=== PATIENT | male | born 1975 | race African-American/Black ===

== ENCOUNTER 2022-12-16 06:18 | Inpatient (IN) | payer OTHER ==
[2022-12-16 06:38] LABS: #Basophils 0.1 10x3/uL (0.0-0.2); #Eosinphils 0.2 10x3/uL (0.0-0.5); #Monocytes 0.7 10x3/uL (0.0-1.1); #Neutrophils 6.8 10x3/uL (1.5-8.4); %Basophils 0.6 % (0.0-2.0); %Eosinophils 1.9 % (0.0-6.0); %Monocytes 6.6 % (0.0-10.0); %Neutrophils 67.4 % (40.0-75.0); Hemoglobin 12.1 g/dL (13.5-17.5); Mean Corpuscular HGB CONC 34.7 g/dL (32.0-36.0); Mean Corpuscular Hemoglobin 27.8 pg (27.0-33.0); Mean Platelet Volume 11.4 fl (7.4-10.4); Platelet Count 261 10x3/uL (150-450); RBC Distribution Width 13.8 % (11.5-14.5); Red Blood Cell (RBC) Count 4.36 10x6/uL (4.32-5.72); White Blood Cell (WBC) Count 10.1 10x3/uL (3.5-10.5)
[2022-12-16] MEDS ORDERED: hydrALAZINE 20 MG/ML VIAL ONE (06:43)
[2022-12-16] MEDS ORDERED: Ondansetron PF 4 MG/2 ML Vial ONE ×2 (06:57→06:58)
[2022-12-16 07:04] LABS: ALT (SGPT) 20 U/L (8-55); AST (SGOT) 26 U/L (5-34); Albumin 3.2 g/dL (3.5-5.0); Alkaline Phosphatase 70 U/L (40-110); Anion Gap 17 mmol/L (10-20); BUN (Urea Nitrogen) 22 mg/dL (8.9-20.6); Bilirubin, Total 0.4 mg/dL (0.2-1.2); Calc. Creatinine Clearance 0 mL/min (70-130); Calcium 8.1 mg/dL (7.8-10.44); Carbon Dioxide 23 mmol/L (22-29); Chloride 104 mmol/L (98-107); Estimated GFR 37; Glucose 203 mg/dL (70-105); Potassium 3.5 mmol/L (3.5-5.1); Protein, Total 6.2 g/dL (6.0-8.3); Sodium 140 mmol/L (136-145)
[2022-12-16] MEDS ORDERED: Morphine 4 MG/ML VIAL ONE (07:51)
[2022-12-16] MEDS ORDERED: Aspirin 325 MG TAB ONE (07:52)
[2022-12-16] MEDS ORDERED: Ondansetron PF 4 MG/2 ML Vial IVP PRN (08:07)
[2022-12-16] MEDS ORDERED: Ondansetron ODT 4 MG TAB PO PRN (08:07)
[2022-12-16] MEDS ORDERED: Amlodipine 5 MG TAB ONE (09:14)
[2022-12-16] MEDS ORDERED: Dextrose 5% in Water 1,000 ML IV PRN (09:18)
[2022-12-16] MEDS ORDERED: Glucagon 1 MG/ML KIT IM PRN (09:18)
[2022-12-16] MEDS ORDERED: Dextrose 50% Abboject 50 ML SYRINGE SLOW IVP PRN (09:18)
[2022-12-16 10:26] VITALS: BMI 32.1
[2022-12-16] MEDS ORDERED: Nitroglycerin 0.4 MG TAB (25 Tab Bottle) SL PRN (10:32)
[2022-12-16] MEDS: Morphine 2 MG/ML VIAL SLOW IVP PRN (10:45)
[2022-12-16] MEDS ORDERED: cloNIDine 0.1 MG TAB PO SCH ×2 (10:45→21:00)
[2022-12-16] MEDS ORDERED: Nitroglycerin 50 MG/250 ML BOT 250 ML IVPB SCH (11:00)
[2022-12-16] MEDS: Heparin 5,000 UNITS/ML VIAL SC SCH ×3 (12:11→21:53)
[2022-12-16] MEDS: Aspirin 81 mg Enteric Coated Tablet PO SCH (12:11)
[2022-12-16] MEDS ORDERED: Metoprolol Tartrate 25 MG TAB PO SCH (12:45)
[2022-12-16 12:54] LABS: Troponin I 0.243 ng/mL (< 0.028)
[2022-12-16 14:23] LABS: Hemoglobin A1c 7.5 % (4.0-6.0)
[2022-12-16 14:53] LABS: Amphetamine Not Detected (NotDetected); Barbiturates Screen Not Detected (NotDetected); Benzodiazepine Screen Not Detected (NotDetected); Cocaine Metabolite Screen Not Detected (NotDetected); Methadone Not Detected (NotDetected); Methamphetamine Not Detected (NotDetected); Opiate Screen Detected (NotDetected); Oxycodone Screen Not Detected (NotDetected); Phencyclidine (PCP) Not Detected (NotDetected); THC/Cannabinoid Screen Not Detected (NotDetected); Tricyclic Screen Not Detected (NotDetected)
[2022-12-16] MEDS: Losartan Potassium 50 MG TAB PO SCH (16:29)
[2022-12-16] MEDS ORDERED: Clopidogrel Bisulfate 75 MG TAB PO SCH (17:00)
[2022-12-16] MEDS: Amlodipine 5 MG TAB PO SCH (21:53)
[2022-12-16] MEDS: Metoprolol Tartrate 25 MG TAB PO SCH (21:54)
[2022-12-16] MEDS: Rosuvastatin 20 MG TAB PO SCH (21:54)
[2022-12-17 04:10] LABS: #Basophils 0.1 10x3/uL (0.0-0.2); #Eosinphils 0.1 10x3/uL (0.0-0.5); #Monocytes 0.9 10x3/uL (0.0-1.1); #Neutrophils 10.3 10x3/uL (1.5-8.4); %Basophils 0.4 % (0.0-2.0); %Eosinophils 0.4 % (0.0-6.0); %Lymphocytes 7.4 % (18.0-47.0); %Monocytes 7.5 % (0.0-10.0); Hemoglobin 11.2 g/dL (13.5-17.5); Mean Corpuscular HGB CONC 33.8 g/dL (32.0-36.0); Mean Corpuscular Hemoglobin 27.9 pg (27.0-33.0); Mean Corpuscular Volume 82.3 fl (81.2-95.1); Mean Platelet Volume 11.6 fl (7.4-10.4); Platelet Count 226 10x3/uL (150-450); RBC Distribution Width 14.2 % (11.5-14.5); Red Blood Cell (RBC) Count 4.02 10x6/uL (4.32-5.72); White Blood Cell (WBC) Count 12.3 10x3/uL (3.5-10.5)
[2022-12-17 04:20] LABS: Anion Gap 13 mmol/L (10-20); BUN (Urea Nitrogen) 25 mg/dL (8.9-20.6); Calc. Creatinine Clearance 72 mL/min (70-130); Calcium 8.4 mg/dL (7.8-10.44); Carbon Dioxide 24 mmol/L (22-29); Chloride 104 mmol/L (98-107); Estimated GFR 40; Glucose 167 mg/dL (70-105); Potassium 3.3 mmol/L (3.5-5.1); Sodium 138 mmol/L (136-145)
[2022-12-17] MEDS: Clopidogrel Bisulfate 75 MG TAB PO SCH (08:28)
[2022-12-17] MEDS: Amlodipine 5 MG TAB PO SCH ×2 (08:28→20:17)
[2022-12-17] MEDS: Heparin 5,000 UNITS/ML VIAL SC SCH ×3 (08:28→20:19)
[2022-12-17] MEDS: Aspirin 81 mg Enteric Coated Tablet PO SCH (08:28)
[2022-12-17] MEDS: Metoprolol Tartrate 25 MG TAB PO SCH ×2 (09:56→20:19)
[2022-12-17] MEDS: Sodium Chloride 0.9% 1,000 ML IV SCH (11:45)
[2022-12-17] MEDS: HumaLOG 300 UNITS/3 ML VIAL SC PRN (11:46)
[2022-12-17] MEDS: hydrALAZINE 20 MG/ML VIAL SLOW IVP PRN ×2 (12:28→18:36)
[2022-12-17] MEDS: Losartan Potassium 50 MG TAB PO SCH (17:00)
[2022-12-17] MEDS: hydrALAZINE 25 MG TAB PO SCH (20:17)
[2022-12-17] MEDS: Rosuvastatin 20 MG TAB PO SCH (20:19)
[2022-12-18] MEDS: hydrALAZINE 20 MG/ML VIAL SLOW IVP PRN (05:30)
[2022-12-18 06:03] LABS: #Basophils 0.1 10x3/uL (0.0-0.2); #Monocytes 1.1 10x3/uL (0.0-1.1); #Neutrophils 9.4 10x3/uL (1.5-8.4); %Basophils 0.4 % (0.0-2.0); %Eosinophils 0.3 % (0.0-6.0); %Lymphocytes 10.6 % (18.0-47.0); %Monocytes 9.1 % (0.0-10.0); %Neutrophils 79.2 % (40.0-75.0); Hemoglobin 11.7 g/dL (13.5-17.5); Mean Corpuscular HGB CONC 34.1 g/dL (32.0-36.0); Mean Corpuscular Hemoglobin 27.9 pg (27.0-33.0); Mean Corpuscular Volume 81.7 fl (81.2-95.1); Mean Platelet Volume 11.3 fl (7.4-10.4); Platelet Count 219 10x3/uL (150-450); RBC Distribution Width 14.5 % (11.5-14.5); White Blood Cell (WBC) Count 11.9 10x3/uL (3.5-10.5)
[2022-12-18 06:11] LABS: Anion Gap 14 mmol/L (10-20); BUN (Urea Nitrogen) 20 mg/dL (8.9-20.6); Calc. Creatinine Clearance 82 mL/min (70-130); Calcium 8.4 mg/dL (7.8-10.44); Carbon Dioxide 21 mmol/L (22-29); Chloride 106 mmol/L (98-107); Estimated GFR 47; Glucose 151 mg/dL (70-105); Potassium 3.2 mmol/L (3.5-5.1); Sodium 138 mmol/L (136-145)
[2022-12-18] MEDS: Sodium Chloride 0.9% 1,000 ML IV SCH (06:35)
[2022-12-18] MEDS ORDERED: Spironolactone 25 MG TAB PO SCH (08:00)
[2022-12-18] MEDS: Amlodipine 5 MG TAB PO SCH ×2 (09:14→22:54)
[2022-12-18] MEDS: Aspirin 81 mg Enteric Coated Tablet PO SCH (09:14)
[2022-12-18] MEDS: Metoprolol Tartrate 25 MG TAB PO SCH ×3 (09:14→22:54)
[2022-12-18] MEDS: hydrALAZINE 25 MG TAB PO SCH ×4 (09:14→22:54)
[2022-12-18] MEDS: Clopidogrel Bisulfate 75 MG TAB PO SCH (09:15)
[2022-12-18] MEDS: Heparin 5,000 UNITS/ML VIAL SC SCH ×3 (09:15→22:53)
[2022-12-18] MEDS ORDERED: Potassium Bicarbonate/Cit Ac 20 MEQ TAB PO SCH (09:15)
[2022-12-18] MEDS: HumaLOG 300 UNITS/3 ML VIAL SC PRN ×2 (12:18→23:05)
[2022-12-18] MEDS: Losartan Potassium 50 MG TAB PO SCH (17:38)
[2022-12-18] MEDS: Rosuvastatin 20 MG TAB PO SCH (22:53)
[2022-12-18] MEDS: Spironolactone 25 MG TAB PO SCH (22:54)
[2022-12-19 03:41] LABS: Anion Gap 16 mmol/L (10-20); BUN (Urea Nitrogen) 25 mg/dL (8.9-20.6); Calc. Creatinine Clearance 68 mL/min (70-130); Calcium 8.6 mg/dL (7.8-10.44); Carbon Dioxide 22 mmol/L (22-29); Chloride 105 mmol/L (98-107); Estimated GFR 37; Glucose 127 mg/dL (70-105); Potassium 3.1 mmol/L (3.5-5.1); Sodium 140 mmol/L (136-145)
[2022-12-19 04:02] LABS: #Eosinphils 0.1 10x3/uL (0.0-0.5); #Neutrophils 8.2 10x3/uL (1.5-8.4); %Basophils 0.4 % (0.0-2.0); %Eosinophils 0.8 % (0.0-6.0); %Lymphocytes 11.7 % (18.0-47.0); %Monocytes 9.7 % (0.0-10.0); %Neutrophils 76.9 % (40.0-75.0); Hemoglobin 11.8 g/dL (13.5-17.5); Mean Corpuscular HGB CONC 34.6 g/dL (32.0-36.0); Mean Corpuscular Hemoglobin 27.8 pg (27.0-33.0); Mean Corpuscular Volume 80.4 fl (81.2-95.1); Mean Platelet Volume 11.7 fl (7.4-10.4); Platelet Count 231 10x3/uL (150-450); RBC Distribution Width 14.2 % (11.5-14.5); Red Blood Cell (RBC) Count 4.24 10x6/uL (4.32-5.72); White Blood Cell (WBC) Count 10.7 10x3/uL (3.5-10.5)
[2022-12-19] MEDS ORDERED: Potassium Chloride 20 MEQ TAB PO SCH (08:15)
[2022-12-19] MEDS: hydrALAZINE 25 MG TAB PO SCH ×4 (08:57→20:36)
[2022-12-19] MEDS: Metoprolol Tartrate 25 MG TAB PO SCH ×3 (08:57→20:37)
[2022-12-19] MEDS: Clopidogrel Bisulfate 75 MG TAB PO SCH (08:58)
[2022-12-19] MEDS: Amlodipine 5 MG TAB PO SCH ×2 (08:58→20:50)
[2022-12-19] MEDS: Aspirin 81 mg Enteric Coated Tablet PO SCH (08:58)
[2022-12-19] MEDS: Spironolactone 25 MG TAB PO SCH (08:58)
[2022-12-19] MEDS ORDERED: Spironolactone 25 MG TAB PO SCH ×2 (09:15→21:00)
[2022-12-19] MEDS: Heparin 5,000 UNITS/ML VIAL SC SCH ×3 (09:38→20:50)
[2022-12-19 14:19] LABS: D-Dimer Test 0.58 *mcg/mL (0.27-0.43); PTT 32.5 sec (22.9-36.1); Prothrombin Time 13.4 sec (12.0-14.7)
[2022-12-19] MEDS: Losartan Potassium 50 MG TAB PO SCH (16:14)
[2022-12-19] MEDS: Morphine 2 MG/ML VIAL SLOW IVP PRN (18:45)
[2022-12-19] MEDS: Rosuvastatin 20 MG TAB PO SCH (20:50)
[2022-12-19 21:17] LABS: Bilirubin Neg (Negative); Blood, Urine Negative (Negative); Clarity Clear (Clear); Glucose, Urine (Dipstick) Normal (Negative); Ketone, Urine Negative (Negative); Leukocyte Negative (Negative); Nitrite Negative (Negative); Protein, Urine (Dipstick) 100 mg/dl (Neg-Trace); Specific Gravity, Urine 1.015 (1.005-1.030); Urobilinogen Normal mg/dL (Less than 2)
[2022-12-19 21:39] LABS: Bacteria/HPF None Seen HPF (None Seen); RBC/HPF None Seen HPF (0-3); Squamous Epithelial None Seen HPF (0-3); WBC/HPF None Seen HPF (0-3)
[2022-12-20] MEDS: hydrALAZINE 20 MG/ML VIAL SLOW IVP PRN ×2 (03:28→11:20)
[2022-12-20 05:04] LABS: Iron 48 ug/dL (65-175); Iron Binding Capacity, Total 200 mcg/dL (261-462)
[2022-12-20 05:06] LABS: Anion Gap 16 mmol/L (10-20); BUN (Urea Nitrogen) 24 mg/dL (8.9-20.6); Calc. Creatinine Clearance 68 mL/min (70-130); Calcium 8.7 mg/dL (7.8-10.44); Carbon Dioxide 22 mmol/L (22-29); Chloride 104 mmol/L (98-107); Cholesterol 227 mg/dl (< 200 Desired); Estimated GFR 37; Glucose 138 mg/dL (70-105); HDL Cholesterol 45 mg/dL (>60 Neg Risk); Iron 47 ug/dL (65-175); Iron Binding Capacity, Total 199 mcg/dL (261-462); LDL Cholesterol, Calculated 164 mg/dL; Potassium 3.2 mmol/L (3.5-5.1); Sodium 139 mmol/L (136-145); Triglycerides 92 mg/dL (Less than 150)
[2022-12-20 05:17] LABS: Hematocrit-VBG 39 % (42.0-52.0); RapidComm Collect By LAB; pH (venous) 7.465 (7.32-7.43)
[2022-12-20 05:30] LABS: Actual Bicarbonate (HCO3v) 25.3 mEq/L (22-28); Base Excess 1.8 mEq/L (-2 - +2); Chloride (VBG) 105 mmol/L (98-106); Hemoglobin (Hb) 13.4 g/dL (13.1-17.2); Potassium (VBG) 3.19 mmol/L (3.70-5.30); Puncture Site RBA; Sodium 139.3 mmol/L (133-146)
[2022-12-20] MEDS ORDERED: Spironolactone 25 MG TAB PO SCH ×2 (08:00→21:00)
[2022-12-20] MEDS: Amlodipine 5 MG TAB PO SCH ×2 (08:32→21:12)
[2022-12-20] MEDS: hydrALAZINE 25 MG TAB PO SCH ×4 (08:32→21:12)
[2022-12-20] MEDS: Clopidogrel Bisulfate 75 MG TAB PO SCH (08:32)
[2022-12-20] MEDS: Aspirin 81 mg Enteric Coated Tablet PO SCH (08:32)
[2022-12-20] MEDS: Metoprolol Tartrate 25 MG TAB PO SCH ×2 (08:32→16:19)
[2022-12-20] MEDS: Heparin 5,000 UNITS/ML VIAL SC SCH ×3 (08:33→21:14)
[2022-12-20 11:46] LABS: Cardiolipin IgA Ab 2.6 APL-U/mL (<14 Negative); Cardiolipin IgG Ab 1.2 GPL-U/mL (<10 Negative); Cardiolipin IgM Ab 1.6 MPL-U/mL (<10 Negative); EliA APS New Method **** NEW METHOD ****
[2022-12-20] MEDS: Potassium Chloride 20 MEQ TAB PO SCH ×2 (12:26→17:59)
[2022-12-20 13:12] LABS: Creatinine, Urine 103.15 mg/dL (63-166)
[2022-12-20] MEDS: Losartan Potassium 50 MG TAB PO SCH (17:15)
[2022-12-20] MEDS: Metoprolol Tartrate 50 MG TAB PO SCH (21:13)
[2022-12-20] MEDS: Rosuvastatin 20 MG TAB PO SCH (21:13)
[2022-12-21] MEDS ORDERED: Calcium Carbonate 500 MG ChewTAB PO PRN (00:40)
[2022-12-21 05:45] LABS: Anion Gap 15 mmol/L (10-20); BUN (Urea Nitrogen) 25 mg/dL (8.9-20.6); Calc. Creatinine Clearance 65 mL/min (70-130); Calcium 8.7 mg/dL (7.8-10.44); Carbon Dioxide 22 mmol/L (22-29); Chloride 105 mmol/L (98-107); Estimated GFR 35; Glucose 133 mg/dL (70-105); Magnesium 1.6 mg/dL (1.6-2.6); Potassium 3.6 mmol/L (3.5-5.1); Sodium 138 mmol/L (136-145)
[2022-12-21] MEDS: hydrALAZINE 20 MG/ML VIAL SLOW IVP PRN (06:21)
[2022-12-21 07:33] LABS: Actual Bicarbonate (HCO3v) 23.1 mEq/L (22-28); Base Excess 0.7 mEq/L (-2 - +2); Chloride (VBG) 106 mmol/L (98-106); Hematocrit-VBG 37 % (42.0-52.0); Hemoglobin (Hb) 12.6 g/dL (13.1-17.2); Potassium (VBG) 3.62 mmol/L (3.70-5.30); Puncture Site Other Site; RapidComm Collect By CBN; Sodium 137.2 mmol/L (133-146)
[2022-12-21] MEDS ORDERED: Ferrous Sulfate 325 MG TAB PO SCH (08:00)
[2022-12-21] MEDS: Heparin 5,000 UNITS/ML VIAL SC SCH ×2 (09:28→15:54)
[2022-12-21] MEDS: Metoprolol Tartrate 50 MG TAB PO SCH (09:33)
[2022-12-21] MEDS: Spironolactone 25 MG TAB PO SCH ×2 (09:33→16:11)
[2022-12-21] MEDS: Aspirin 81 mg Enteric Coated Tablet PO SCH (09:33)
[2022-12-21] MEDS: Clopidogrel Bisulfate 75 MG TAB PO SCH (09:33)
[2022-12-21] MEDS: Amlodipine 5 MG TAB PO SCH (09:33)
[2022-12-21] MEDS: hydrALAZINE 25 MG TAB PO SCH ×3 (09:33→17:02)
[2022-12-21] MEDS: Losartan Potassium 50 MG TAB PO SCH (17:02)
[2022-12-21 17:05] VITALS: BP 160/84; TEMP 98.4
[2022-12-23 14:39] LABS: Activated Protein C Resistance 2.3 ratio (.)
== END 2022-12-21 18:40 | DRG 65 ==
LOC: CSHERS 06:18 → SUATTDRO 06:18 → CSHTELE 08:07 → CSHICU 13:54 → OBSVTOIN 12-18 09:08 → CSHTELE 12-19 05:34 → UNDODISIN 12-21 18:45
PROVIDERS: ADMIT Family Medicine; ATTEND Family Medicine
PROC: 4A133R1 Monitoring of Arterial Saturation, Peripheral, Percutaneous Approach (ICD-10-PCS; principal; 2022-12-18)
DX: I63.9 Cerebral infarction, unspecified (principal); G81.91 Hemiplegia, unspecified affecting right dominant side; I16.1 Hypertensive emergency; I24.8 Other forms of acute ischemic heart disease; N17.9 Acute kidney failure, unspecified; E78.5 Hyperlipidemia, unspecified; I12.9 Hypertensive chronic kidney disease with stage 1 through stage 4 chronic kidney disease, or unspecified chronic kidney disease; E11.22 Type 2 diabetes mellitus with diabetic chronic kidney disease; N18.32 Chronic kidney disease, stage 3b; E11.65 Type 2 diabetes mellitus with hyperglycemia; E66.9 Obesity, unspecified; R47.1 Dysarthria and anarthria; R29.810 Facial weakness; I25.10 Atherosclerotic heart disease of native coronary artery without angina pectoris; Z79.82 Long term (current) use of aspirin; Z79.02 Long term (current) use of antithrombotics/antiplatelets; Z79.899 Other long term (current) drug therapy; Z95.5 Presence of coronary angioplasty implant and graft; Z91.148 Patient's other noncompliance with medication regimen for other reason; Z68.32 Body mass index [BMI] 32.0-32.9, adult
CPT/HCPCS: 36415; 36416; 36600; 70450; 70544; 70551; 71045; 76770; 80048; 80053; 80061; 80306; 81001; 82553; 82570; 82805; 83036; 83090; 83540; 83550; 83735; 84156; 84443; 84484; 85025; 85300; 85303; 85305; 85307; 85379; 85598; 85610; 85730; 86147; 93005; 93010; 93306; 93880; 94760; 94762; 96372; 96374; 96375; 96376; G0378; J0360; J1644; J1815; J2270; J2272; J2405; J7050

== ENCOUNTER 2023-02-03 07:47 | Inpatient (IN) | payer OTHER ==
[2023-02-03 08:56] LABS: #Basophils 0.1 10x3/uL (0.0-0.2); #Eosinphils 0.2 10x3/uL (0.0-0.5); #Monocytes 0.4 10x3/uL (0.0-1.1); #Neutrophils 5.6 10x3/uL (1.5-8.4); %Basophils 0.7 % (0.0-2.0); %Eosinophils 2.3 % (0.0-6.0); %Monocytes 5.3 % (0.0-10.0); %Neutrophils 80.3 % (40.0-75.0); Hematocrit 36.3 % (38.8-50.0); Hemoglobin 12.7 g/dL (13.5-17.5); Mean Corpuscular Hemoglobin 28.7 pg (27.0-33.0); Mean Corpuscular Volume 81.9 fl (81.2-95.1); Mean Platelet Volume 10.2 fl (7.4-10.4); Platelet Count 221 10x3/uL (150-450); RBC Distribution Width 14.8 % (11.5-14.5); Red Blood Cell (RBC) Count 4.43 10x6/uL (4.32-5.72)
[2023-02-03 08:57] LABS: PTT 26.5 sec (22.0-33.0); Prothrombin Time 10.5 sec (9.5-12.1)
[2023-02-03 09:16] LABS: Troponin I 0.037 ng/mL (< 0.028)
[2023-02-03 09:30] LABS: ALT (SGPT) 14 U/L (8-55); AST (SGOT) 18 U/L (5-34); Albumin 3.7 g/dL (3.5-5.0); Alkaline Phosphatase 71 U/L (40-110); Anion Gap 15 mmol/L (10-20); BUN (Urea Nitrogen) 23 mg/dL (8.9-20.6); Bilirubin, Total 0.5 mg/dL (0.2-1.2); Calc. Creatinine Clearance 0 mL/min (70-130); Calcium 9.1 mg/dL (7.8-10.44); Carbon Dioxide 22 mmol/L (22-29); Chloride 105 mmol/L (98-107); Estimated GFR 33; Globulin 3.4 g/dL (2.4-3.5); Glucose 135 mg/dL (70-105); Lipase 40 U/L (8-78); Magnesium 1.8 mg/dL (1.6-2.6); Potassium 4.1 mmol/L (3.5-5.1); Protein, Total 7.1 g/dL (6.0-8.3); Sodium 138 mmol/L (136-145)
[2023-02-03] MEDS ORDERED: Aspirin 325 mg Enteric Coated Tablet ONE (10:56)
[2023-02-03] MEDS ORDERED: Clopidogrel Bisulfate 300 MG TAB ONE (10:56)
[2023-02-03] MEDS ORDERED: hydrALAZINE 20 MG/ML VIAL SLOW IVP PRN (11:14)
[2023-02-03] MEDS ORDERED: Glucagon 1 MG/ML KIT IM PRN (11:14)
[2023-02-03] MEDS ORDERED: Dextrose 50% Abboject 50 ML SYRINGE SLOW IVP PRN (11:14)
[2023-02-03] MEDS ORDERED: HumaLOG 300 UNITS/3 ML VIAL SC PRN (11:14)
[2023-02-03] MEDS ORDERED: Dextrose 5% in Water 1,000 ML IV PRN (11:14)
[2023-02-03 11:47] LABS: Troponin I 0.045 ng/mL (< 0.028)
[2023-02-03] MEDS ORDERED: hydrALAZINE 25 MG TAB PO SCH (13:00)
[2023-02-03] MEDS ORDERED: hydrALAZINE 25 MG TAB ONE (13:08)
[2023-02-03] MEDS: Lactated Ringer's 1,000 ML IV SCH ×2 (13:23→21:47)
[2023-02-03 15:09] LABS: Troponin I 0.021 ng/mL (< 0.028)
[2023-02-03] MEDS: Spironolactone 25 MG TAB PO SCH ×2 (15:14→21:43)
[2023-02-03 20:25] VITALS: BMI 29.8
[2023-02-03] MEDS ORDERED: Rosuvastatin 20 MG TAB PO SCH (21:00)
[2023-02-03] MEDS ORDERED: Metoprolol Tartrate 50 MG TAB PO SCH (21:00)
[2023-02-03] MEDS: Amlodipine 5 MG TAB PO SCH (21:42)
[2023-02-03] MEDS: hydrALAZINE 25 MG TAB PO SCH (21:43)
[2023-02-03] MEDS: Metoprolol Tartrate 25 MG TAB PO SCH (21:44)
[2023-02-03] MEDS: Heparin 5,000 UNITS/ML VIAL SC SCH (22:01)
[2023-02-04] MEDS: Lactated Ringer's 1,000 ML IV SCH ×2 (02:49→08:55)
[2023-02-04 05:33] LABS: #Eosinphils 0.1 10x3/uL (0.0-0.5); #Monocytes 0.5 10x3/uL (0.0-1.1); #Neutrophils 5.1 10x3/uL (1.5-8.4); %Basophils 0.6 % (0.0-2.0); %Eosinophils 1.5 % (0.0-6.0); %Lymphocytes 12.3 % (18.0-47.0); %Monocytes 7.7 % (0.0-10.0); %Neutrophils 77.7 % (40.0-75.0); Hematocrit 34.6 % (38.8-50.0); Hemoglobin 12.2 g/dL (13.5-17.5); Mean Corpuscular HGB CONC 35.3 g/dL (32.0-36.0); Mean Corpuscular Hemoglobin 28.1 pg (27.0-33.0); Mean Corpuscular Volume 79.7 fl (81.2-95.1); Mean Platelet Volume 10.2 fl (7.4-10.4); Platelet Count 225 10x3/uL (150-450); RBC Distribution Width 14.5 % (11.5-14.5); Red Blood Cell (RBC) Count 4.34 10x6/uL (4.32-5.72); White Blood Cell (WBC) Count 6.6 10x3/uL (3.5-10.5)
[2023-02-04 05:42] LABS: Anion Gap 14 mmol/L (10-20); BUN (Urea Nitrogen) 18 mg/dL (8.9-20.6); Calc. Creatinine Clearance 68 mL/min (70-130); Calcium 8.9 mg/dL (7.8-10.44); Carbon Dioxide 21 mmol/L (22-29); Cardiac Risk 3.9 (Less than 4.5); Chloride 105 mmol/L (98-107); Cholesterol 131 mg/dl (< 200 Desired); Estimated GFR 41; Glucose 85 mg/dL (70-105); HDL Cholesterol 34 mg/dL (>60 Neg Risk); LDL Cholesterol, Calculated 82 mg/dL; Potassium 4.1 mmol/L (3.5-5.1); Sodium 136 mmol/L (136-145); Triglycerides 77 mg/dL (Less than 150)
[2023-02-04] MEDS: Heparin 5,000 UNITS/ML VIAL SC SCH ×2 (08:54→21:21)
[2023-02-04] MEDS: Aspirin 81 mg Enteric Coated Tablet PO SCH (08:54)
[2023-02-04] MEDS: Ferrous Sulfate 325 MG TAB PO SCH (08:54)
[2023-02-04] MEDS: Clopidogrel Bisulfate 75 MG TAB PO SCH (08:55)
[2023-02-04] MEDS: Spironolactone 25 MG TAB PO SCH ×3 (08:55→21:22)
[2023-02-04] MEDS: hydrALAZINE 25 MG TAB PO SCH ×3 (08:56→21:22)
[2023-02-04] MEDS: Metoprolol Tartrate 25 MG TAB PO SCH ×2 (08:56→21:23)
[2023-02-04] MEDS: Amlodipine 5 MG TAB PO SCH ×2 (08:56→21:23)
[2023-02-04] MEDS ORDERED: Losartan Potassium 50 MG TAB PO SCH (09:00)
[2023-02-04] MEDS: Rosuvastatin 20 MG TAB PO SCH (21:22)
[2023-02-04] MEDS: Valsartan 80 MG TAB PO SCH (21:38)
[2023-02-05 05:26] LABS: #Eosinphils 0.2 10x3/uL (0.0-0.5); #Monocytes 0.5 10x3/uL (0.0-1.1); #Neutrophils 5.1 10x3/uL (1.5-8.4); %Basophils 0.6 % (0.0-2.0); %Eosinophils 2.2 % (0.0-6.0); %Monocytes 7.4 % (0.0-10.0); %Neutrophils 74.7 % (40.0-75.0); Hematocrit 33.8 % (38.8-50.0); Hemoglobin 11.9 g/dL (13.5-17.5); Mean Corpuscular HGB CONC 35.2 g/dL (32.0-36.0); Mean Corpuscular Hemoglobin 28.5 pg (27.0-33.0); Mean Corpuscular Volume 80.9 fl (81.2-95.1); Mean Platelet Volume 10.3 fl (7.4-10.4); Platelet Count 210 10x3/uL (150-450); RBC Distribution Width 14.6 % (11.5-14.5); Red Blood Cell (RBC) Count 4.18 10x6/uL (4.32-5.72); White Blood Cell (WBC) Count 6.8 10x3/uL (3.5-10.5)
[2023-02-05 05:35] LABS: Anion Gap 13 mmol/L (10-20); BUN (Urea Nitrogen) 21 mg/dL (8.9-20.6); Calc. Creatinine Clearance 62 mL/min (70-130); Calcium 8.7 mg/dL (7.8-10.44); Carbon Dioxide 22 mmol/L (22-29); Chloride 106 mmol/L (98-107); Estimated GFR 36; Glucose 94 mg/dL (70-105); Potassium 3.8 mmol/L (3.5-5.1); Sodium 137 mmol/L (136-145)
[2023-02-05] MEDS: Spironolactone 25 MG TAB PO SCH ×3 (08:41→22:42)
[2023-02-05] MEDS: Heparin 5,000 UNITS/ML VIAL SC SCH ×2 (08:41→22:43)
[2023-02-05] MEDS: Ferrous Sulfate 325 MG TAB PO SCH (08:42)
[2023-02-05] MEDS: Amlodipine 5 MG TAB PO SCH ×2 (08:42→22:43)
[2023-02-05] MEDS: Aspirin 81 mg Enteric Coated Tablet PO SCH (08:42)
[2023-02-05] MEDS: Valsartan 80 MG TAB PO SCH ×2 (08:42→22:42)
[2023-02-05] MEDS: Clopidogrel Bisulfate 75 MG TAB PO SCH (08:42)
[2023-02-05] MEDS: Metoprolol Tartrate 25 MG TAB PO SCH ×2 (08:43→22:43)
[2023-02-05] MEDS: hydrALAZINE 25 MG TAB PO SCH ×3 (08:43→22:41)
[2023-02-05] MEDS ORDERED: OLMESARTAN FS SCH (09:00)
[2023-02-05] MEDS ORDERED: Terazosin HCl 1 MG CAP PO SCH (21:00)
[2023-02-05] MEDS: Rosuvastatin 20 MG TAB PO SCH (22:43)
[2023-02-06] MEDS: Clopidogrel Bisulfate 75 MG TAB PO SCH (08:44)
[2023-02-06] MEDS: Aspirin 81 mg Enteric Coated Tablet PO SCH (08:44)
[2023-02-06] MEDS: Metoprolol Tartrate 25 MG TAB PO SCH ×2 (08:44→20:12)
[2023-02-06] MEDS: Ferrous Sulfate 325 MG TAB PO SCH (08:44)
[2023-02-06] MEDS: Spironolactone 25 MG TAB PO SCH ×3 (08:44→20:12)
[2023-02-06] MEDS: Amlodipine 5 MG TAB PO SCH ×2 (08:45→20:12)
[2023-02-06] MEDS: Valsartan 80 MG TAB PO SCH ×2 (08:45→20:11)
[2023-02-06] MEDS: hydrALAZINE 25 MG TAB PO SCH ×3 (08:45→20:12)
[2023-02-06] MEDS: Heparin 5,000 UNITS/ML VIAL SC SCH (08:45)
[2023-02-06] MEDS: Rosuvastatin 20 MG TAB PO SCH (20:10)
[2023-02-06] MEDS ORDERED: Terazosin HCl 1 MG CAP PO SCH (21:00)
[2023-02-07] MEDS ORDERED: fentaNYL 50 mcg/mL 1 mL Vial ONE (10:36)
[2023-02-07] MEDS: Ferrous Sulfate 325 MG TAB PO SCH (13:57)
[2023-02-07] MEDS: Amlodipine 5 MG TAB PO SCH ×2 (14:01→22:00)
[2023-02-07] MEDS: Clopidogrel Bisulfate 75 MG TAB PO SCH (14:02)
[2023-02-07] MEDS: hydrALAZINE 25 MG TAB PO SCH ×3 (14:02→21:59)
[2023-02-07] MEDS: Aspirin 81 mg Enteric Coated Tablet PO SCH (14:02)
[2023-02-07] MEDS: Metoprolol Tartrate 25 MG TAB PO SCH (14:03)
[2023-02-07] MEDS: Valsartan 80 MG TAB PO SCH ×2 (14:03→21:59)
[2023-02-07] MEDS: Spironolactone 25 MG TAB PO SCH ×3 (14:03→22:02)
[2023-02-07] MEDS ORDERED: Nebivolol HCl 5 MG TAB PO SCH (16:00)
[2023-02-07] MEDS ORDERED: Terazosin HCl 5 MG CAP PO SCH (21:00)
[2023-02-07] MEDS: Rosuvastatin 20 MG TAB PO SCH (21:59)
[2023-02-08 05:12] LABS: #Eosinphils 0.1 10x3/uL (0.0-0.5); #Monocytes 0.5 10x3/uL (0.0-1.1); #Neutrophils 5.3 10x3/uL (1.5-8.4); %Basophils 0.4 % (0.0-2.0); %Eosinophils 1.9 % (0.0-6.0); %Lymphocytes 19.9 % (18.0-47.0); %Monocytes 6.6 % (0.0-10.0); %Neutrophils 70.9 % (40.0-75.0); Hematocrit 35.2 % (38.8-50.0); Hemoglobin 12.4 g/dL (13.5-17.5); Mean Corpuscular HGB CONC 35.2 g/dL (32.0-36.0); Mean Corpuscular Hemoglobin 28.8 pg (27.0-33.0); Mean Corpuscular Volume 81.9 fl (81.2-95.1); Mean Platelet Volume 10.2 fl (7.4-10.4); Platelet Count 226 10x3/uL (150-450); RBC Distribution Width 15.2 % (11.5-14.5); White Blood Cell (WBC) Count 7.4 10x3/uL (3.5-10.5)
[2023-02-08 05:19] LABS: Anion Gap 15 mmol/L (10-20); BUN (Urea Nitrogen) 21 mg/dL (8.9-20.6); Calc. Creatinine Clearance 59 mL/min (70-130); Calcium 8.8 mg/dL (7.8-10.44); Carbon Dioxide 20 mmol/L (22-29); Chloride 107 mmol/L (98-107); Estimated GFR 34; Glucose 110 mg/dL (70-105); Potassium 4.1 mmol/L (3.5-5.1); Sodium 138 mmol/L (136-145)
[2023-02-08] MEDS: Amlodipine 5 MG TAB PO SCH (09:25)
[2023-02-08] MEDS: Aspirin 81 mg Enteric Coated Tablet PO SCH (09:25)
[2023-02-08] MEDS: Ferrous Sulfate 325 MG TAB PO SCH (09:26)
[2023-02-08] MEDS: Clopidogrel Bisulfate 75 MG TAB PO SCH (09:26)
[2023-02-08] MEDS: hydrALAZINE 25 MG TAB PO SCH (09:26)
[2023-02-08] MEDS: Spironolactone 25 MG TAB PO SCH (09:34)
[2023-02-08] MEDS: Valsartan 80 MG TAB PO SCH (09:38)
[2023-02-08 12:21] VITALS: TEMP 98.1
[2023-02-08 12:30] VITALS: BP 133/71
== END 2023-02-08 14:20 | disposition home or self-care (01) | DRG 65 ==
LOC: CSHERS 07:47 → CSHERHOLD 10:29 → CSHTELE 20:02
PROVIDERS: ADMIT Family Medicine; ATTEND Internal Medicine
PROC: B24BZZ4 Ultrasonography of Heart with Aorta, Transesophageal (ICD-10-PCS; principal; 2023-02-07)
DX: I63.449 Cerebral infarction due to embolism of unspecified cerebellar artery (principal); N17.9 Acute kidney failure, unspecified; E11.22 Type 2 diabetes mellitus with diabetic chronic kidney disease; N18.2 Chronic kidney disease, stage 2 (mild); E78.2 Mixed hyperlipidemia; I25.118 Atherosclerotic heart disease of native coronary artery with other forms of angina pectoris; R00.1 Bradycardia, unspecified; F39 Unspecified mood [affective] disorder; N40.0 Benign prostatic hyperplasia without lower urinary tract symptoms; I13.10 Hypertensive heart and chronic kidney disease without heart failure, with stage 1 through stage 4 chronic kidney disease, or unspecified chronic kidney disease; Z79.82 Long term (current) use of aspirin; Z79.899 Other long term (current) drug therapy; Z82.49 Family history of ischemic heart disease and other diseases of the circulatory system; Z83.3 Family history of diabetes mellitus; R29.702 NIHSS score 2; R29.810 Facial weakness; Z91.148 Patient's other noncompliance with medication regimen for other reason; Z79.02 Long term (current) use of antithrombotics/antiplatelets; G83.21 Monoplegia of upper limb affecting right dominant side; R77.8 Other specified abnormalities of plasma proteins; R47.1 Dysarthria and anarthria; E66.9 Obesity, unspecified; Z68.29 Body mass index [BMI] 29.0-29.9, adult
CPT/HCPCS: 36415; 36416; 70450; 70551; 71045; 80048; 80053; 80061; 83690; 83735; 83880; 84443; 84484; 85025; 85610; 85730; 93005; 93010; 93312; J1644; J3010; J7120

== ENCOUNTER 2024-06-22 01:40 | Emergency (ER) | payer BC ==
[2024-06-22 02:02] LABS: #Basophils 0.05 10x3/uL (0.0-0.2); #Eosinophils 0.07 10x3/uL (0.0-0.5); #Monocytes 1.18 10x3/uL (0.0-1.1); #Neutrophils 17.08 10x3/uL (1.5-8.4); %Basophils 0.2 % (0.0-2.0); %Eosinophils 0.3 % (0.0-6.0); %Lymphocytes 9.2 % (18.0-47.0); %Monocytes 5.8 % (0.0-10.0); %Neutrophils 84.1 % (40.0-75.0); Hematocrit 33.7 % (38.8-50.0); Hemoglobin 11.8 g/dL (13.5-17.5); Mean Corpuscular Hemoglobin 30.7 pg (27.0-33.0); Mean Corpuscular Volume 87.8 fL (81.2-95.1); Mean Platelet Volume 9.8 fL (7.4-10.4); Platelet Count 227 10x3/uL (150-450); RBC Distribution Width 13.9 % (11.5-14.5); Red Blood Cell (RBC) Count 3.84 10x6/uL (4.32-5.72); White Blood Cell (WBC) Count 20.34 10x3/uL (3.5-10.5)
[2024-06-22 02:19] LABS: ALT (SGPT) 22 U/L (Less than 45); AST (SGOT) 22 U/L (11-34); Albumin 3.3 g/dL (3.1-4.5); Alkaline Phosphatase 54 U/L (40-110); Anion Gap 12 mmol/L (10-20); BUN (Urea Nitrogen) 26 mg/dL (8.9-20.6); Bilirubin, Total 0.4 mg/dL (0.3-1.2); Calc. Creatinine Clearance 0 mL/min (70-130); Calcium 8.4 mg/dL (7.8-10.44); Carbon Dioxide 22 mmol/L (22-29); Chloride 109 mmol/L (98-107); Estimated GFR 36; Globulin 2.8 g/dL (2.4-3.5); Glucose 142 mg/dL (70-105); Potassium 3.6 mmol/L (3.5-5.1); Protein, Total 6.1 g/dL (6.0-8.3); Sodium 139 mmol/L (136-145)
[2024-06-22 02:32] LABS: Magnesium 1.6 mg/dL (1.6-2.6)
[2024-06-22 03:09] LABS: Bilirubin Neg (Negative); Blood, Urine 10 (Negative); Clarity Clear (Clear); Glucose, Urine (Dipstick) Normal (Negative); Ketone, Urine Negative (Negative); Leukocyte Negative (Negative); Nitrite Negative (Negative); Protein, Urine (Dipstick) 30 mg/dl (Neg-Trace); Specific Gravity, Urine 1.015 (1.005-1.030); Urobilinogen Normal mg/dL (Less than 2)
[2024-06-22 03:33] LABS: Bacteria/HPF Rare-Few HPF (None Seen); CAUTI Indications for Culture Alt mental st,lethar; RBC/HPF 0-3 HPF (0-3); Squamous Epithelial 0-3 HPF (0-3); WBC/HPF 0-3 HPF (0-3)
[2024-06-22 03:34] LABS: Urine Culture Reflex No No
[2024-06-22] MEDS ORDERED: Acetaminophen 500 MG TAB ONE (03:48)
== END 2024-06-22 04:07 | disposition home or self-care (01) ==
LOC: CSHERS 01:40
DX: T14.8XXA Other injury of unspecified body region, initial encounter (principal); D72.829 Elevated white blood cell count, unspecified; I10 Essential (primary) hypertension; E11.9 Type 2 diabetes mellitus without complications; Z79.899 Other long term (current) drug therapy; Z79.01 Long term (current) use of anticoagulants; Z86.73 Personal history of transient ischemic attack (TIA), and cerebral infarction without residual deficits; W18.30XA Fall on same level, unspecified, initial encounter
CPT/HCPCS: 70450; 71045; 80053; 81001; 83735; 84484; 85025; 93005